=== PATIENT | male | born 1965 | race Caucasian/White ===

== ENCOUNTER 2020-09-08 23:36 | Emergency (ER) | payer OTHER ==
[~2020-09-08] VITALS: Ht 188 cm; Wt 99.8 kg
[~2020-09-08 23:36] MED LIST: CLONIDINE HCL0.1 MG; LORAZEPAM1 MG; NORCO 5-325 TA1 EACH PO
== END 2020-09-09 02:07 | disposition home or self-care (01) ==
LOC: ED 23:36
DX: S01.81XA Laceration without foreign body of other part of head, initial encounter (principal); W01.10XA Fall on same level from slipping, tripping and stumbling with subsequent striking against unspecified object, initial encounter; I11.0 Hypertensive heart disease with heart failure; I50.9 Heart failure, unspecified; E11.9 Type 2 diabetes mellitus without complications; F17.200 Nicotine dependence, unspecified, uncomplicated
CPT/HCPCS: 12014; 99282-25

== ENCOUNTER 2021-06-19 07:02 | Emergency (ER) | payer SELFPAY ==
[~2021-06-19] VITALS: Ht 188 cm; Wt 108.9 kg
[2021-06-19] MEDS ORDERED: LASIX20 MG PO (08:51)
[2021-06-19] MEDS ORDERED: CYCLOBENZAPRINE5 MG PO (08:53)
--- NOTE | 2021-06-21 07:39 | EKG ---
[facility] [address] [facility] [place] [address] Signed Sinus tachycardia Possible Left atrial enlargement Incomplete right bundle branch block Left anterior fascicular block Minimal voltage criteria for LVH, may be normal variant ( Abelardo product ) Inferior infarct , age undetermined Abnormal ECG No previous ECGs available Confirmed by ELIZABETH THOMPSON MD ([id number] on 06/21/2021 7:39:04 AM Electronically Signed By: ELIZABETH THOMPSON MD 06/21/21 0739 PATIENT NAME: WILLIAM CLEMONS Electrocardiogram DATE OF : 61 PHYSICIAN: ELIZABETH THOMPSON MD REPORT #: [id number] REPORT IS CONFIDENTIAL AND NOT TO BE RELEASED WITHOUT AUTHORIZATION
== END 2021-06-19 09:10 | disposition home or self-care (01) ==
LOC: ED 07:02
DX: I11.0 Hypertensive heart disease with heart failure (principal); I50.9 Heart failure, unspecified; E11.9 Type 2 diabetes mellitus without complications; I25.2 Old myocardial infarction; F17.200 Nicotine dependence, unspecified, uncomplicated; Z91.013 Allergy to seafood
CPT/HCPCS: 71045; 80053; 83735; 83880; 84484; 85025; 85379; 93005; 93010; 96374; 99285-25; J1940